=== PATIENT | female | born 1990 | race Caucasian/White ===

== ENCOUNTER 2019-12-15 15:56 | Observation (INO) ==
[2019-12-15] MEDS ORDERED: 0.9 % Sodium Chloride 1,000 ML IVC ONE (16:40)
[2019-12-15] MEDS ORDERED: Naloxone 0.4 MG/ML INJ IVP PRN (17:49)
[2019-12-15] MEDS ORDERED: *HR* LORazepam 2 MG/ML VIAL IVP PRN (17:49)
[2019-12-15] MEDS ORDERED: Ondansetron 4 MG/2 ML VIAL IVP PRN (17:49)
[2019-12-15] MEDS ORDERED: Haloperidol Lactate 5 MG/ML VIAL IVP PRN (17:49)
[2019-12-15] MEDS: 0.9 % Sodium Chloride 1,000 ML IVC SCH (19:14)
[2019-12-16 03:10] LABS: Basophils % 0.6 %; Eosinophils % 0.6 %; Hematocrit 38.4 % (35.3-44.9); Hemoglobin 12.7 g/dL (11.5-15.4); Immature Granulocytes % 0.1 % (0-4); Lymphocytes # 1.7 K/mcL (0.6-4.6); Lymphocytes % 24.4 %; Mean Corpuscular HGB Conc 33.1 g/dL (31.6-35.5); Mean Corpuscular Hemoglobin 30.6 pg (28.0-33.3); Mean Corpuscular Volume 92.5 fL (83.0-100.0); Monocytes # 0.5 K/mcL (0.0-1.3); Monocytes % 6.7 %; Neutrophils # 4.6 K/mcL (1.6-8.9); Platelet Count 284 K/mcL (140-400); Red Blood Count 4.15 M/mcL (3.82-4.97); Red Cell Distribution Width 12.6 % (11.5-14.5); Segmented Neutrophils % 67.6 %; White Blood Count 6.8 K/mcL (4.3-11.1)
[2019-12-16 03:30] LABS: BUN/Creatinine Ratio 21 (6-26); Blood Urea Nitrogen 13 mg/dL (6-20); Calcium 8.2 mg/dL (8.6-10.3); Carbon Dioxide 23 mEq/L (23-29); Chloride 112 mEq/L (98-107); Glucose 73 mg/dL (70-105); Osmolality,Calculated 293 (280-300); Potassium 3.1 mEq/L (3.5-5.1); Sodium 142 mEq/L (136-145); eGFR For African Americans > 60 (> 60); eGFR For Non-African Americans > 60 (> 60)
[2019-12-16] MEDS: 0.9 % Sodium Chloride 1,000 ML IVC SCH (05:08)
[2019-12-16] MEDS ORDERED: hydrOXYzine pamoate 25 MG CAPSULE PO PRN (11:00)
[2019-12-16] MEDS: Aspirin 325 MG TABLET PO SCH (15:13)
[2019-12-16] MEDS: *HR* Heparin 5,000 UNIT/ML VIAL SQ SCH (18:12)
[2019-12-17 01:32] LABS: BUN/Creatinine Ratio 21 (6-26); Blood Urea Nitrogen 14 mg/dL (6-20); Calcium 8.2 mg/dL (8.6-10.3); Carbon Dioxide 25 mEq/L (23-29); Chloride 109 mEq/L (98-107); Glucose 112 mg/dL (70-105); Osmolality,Calculated 291 (280-300); Phosphorous 2.9 mg/dL (2.7-4.5); Potassium 3.4 mEq/L (3.5-5.1); Sodium 140 mEq/L (136-145); eGFR For African Americans > 60 (> 60); eGFR For Non-African Americans > 60 (> 60)
[2019-12-17] MEDS ORDERED: Acetaminophen 325 MG TABLET PO ONE ×2 (06:16→12:22)
[2019-12-17] MEDS: *HR* Heparin 5,000 UNIT/ML VIAL SQ SCH (06:30)
[2019-12-17] MEDS: Aspirin 325 MG TABLET PO SCH (08:10)
[2019-12-17 12:09] VITALS: BP 116/69
[2019-12-17 12:31] LABS: Adenovirus F 40/41 PCR Not detected (Not detect); Astrovirus PCR Not detected (Not detect); C.difficile Toxin A/B Gene PCR Not detected (Not detect); Campylobacter by PCR Not detected (Not detect); Cryptosporidium by PCR Not detected (Not detect); Cyclospora cayetanensis PCR Not detected (Not detect); E. coli O157 by PCR Not detected (Not detect); Entamoeba histolytica PCR Not detected (Not detect); Enteroaggregative E.coli(EAEC) Not detected (Not detect); Enteropathogenic E.coli(EPEC) Not detected (Not detect); Enterotoxigenic E.coli (ETEC) Not detected (Not detect); Giardia lamblia PCR Not detected (Not detect); Norovirus GI/GII PCR Not detected (Not detect); Plesiomonas shigelloides PCR Not detected (Not detect); Rotavirus A PCR Not detected (Not detect); Salmonella PCR Not detected (Not detect); Sapovirus PCR Not detected (Not detect); Shig/EnteroinvasiveE coli EIEC Not detected (Not detect); Shigalike tox-prod E coli STEC Not detected (Not detect); Vibrio PCR Not detected (Not detect); Vibrio cholerae PCR Not detected (Not detect); Yersinia enterocolitica PCR Not detected (Not detect)
== END 2019-12-17 14:23 ==
LOC: EMEROOARM 15:56 → 3BNU 15:56 → SUATTDRO 17:05 → 3BNU 17:30
PROVIDERS: ADMIT Internal Medicine; ATTEND Internal Medicine

== ENCOUNTER 2019-12-17 14:26 | Inpatient (IN) ==
[2019-12-17] MEDS ORDERED: Ibuprofen 400 MG TABLET PO PRN (14:42)
[2019-12-17] MEDS ORDERED: *HR* LORazepam 2 MG/ML VIAL IM PRN (14:42)
[2019-12-17] MEDS ORDERED: MOM Conc 10 ML UD.LIQ PO PRN (14:42)
[2019-12-17] MEDS ORDERED: Mag Hydrox/Al Hydrox/Simeth 30 ML UDC PO PRN (14:42)
[2019-12-17] MEDS ORDERED: Haloperidol Lactate 5 MG/ML VIAL IM PRN (14:42)
[2019-12-17] MEDS ORDERED: *HR* LORazepam 1 MG TABLET PO PRN (14:42)
[2019-12-17] MEDS ORDERED: haloperidoL 5 MG TABLET PO PRN (14:42)
[2019-12-17] MEDS: Acetaminophen 325 MG TABLET PO PRN (19:11)
[2019-12-17] MEDS: hydrOXYzine pamoate 25 MG CAPSULE PO PRN (19:12)
[2019-12-17] MEDS: diazePAM 2 MG TABLET PO SCH (20:16)
[2019-12-17] MEDS ORDERED: traZODone 50 MG TABLET PO PRN (21:00)
[2019-12-18] MEDS: diazePAM 2 MG TABLET PO SCH ×2 (08:18→20:40)
[2019-12-18] MEDS: Acetaminophen 325 MG TABLET PO PRN ×2 (08:18→16:54)
[2019-12-18] MEDS: Multivit/Ca/Min/Fe/FA 1 TAB TABLET PO SCH (09:02)
[2019-12-18] MEDS: hydrOXYzine pamoate 25 MG CAPSULE PO PRN (11:25)
[2019-12-18] MEDS ORDERED: Mirtazapine 15 MG TABLET PO SCH (21:00)
[2019-12-19] MEDS: diazePAM 2 MG TABLET PO SCH (08:15)
[2019-12-19] MEDS: Multivit/Ca/Min/Fe/FA 1 TAB TABLET PO SCH (08:15)
[2019-12-19] MEDS: Acetaminophen 325 MG TABLET PO PRN (08:15)
[2019-12-19 09:55] VITALS: BP 124/83
== END 2019-12-19 10:04 | disposition home or self-care (01) | DRG 751 ==
LOC: 1ANU 14:26
PROVIDERS: ADMIT Psychiatry & Neurology Psychiatry; ATTEND Psychiatry & Neurology Psychiatry